=== PATIENT | female | born 1950 | race Caucasian/White ===

== ENCOUNTER → 2023-05-20 | Outpatient (CLI) | payer OTHER, SELFPAY ==
--- OUTSIDE RECORDS SUMMARY | 2023-05-20 08:21 | XMS RPT_ITS | CCD ---
Author Name Unknown Address [address] [place] [address] Organization [facility] Care Team Providers Care Credit Operations Specialist Name Role Phone Arnav Colemanan Unavailable Win, Nyan Unavailable Arnav Colemanan Unavailable Unavailable Jared Nyan Unavailable Unavailable Tommy, Bhuvaneswari Unavailable Unavaila ble Tommy, Bhuvaneswari Unavailable Unavaila ble Jared Nyan Unavailable Unavailable Jared Nyan Unavailable Unavailable Cecilia Wilde Unavailable Unavailable Cecilia Wilde Unavailable Unavailable Arnav Colemanan Primary Care Provider Arnav Colemanan Unavailable Deena Coleman Primary Care Provider [phone] Deena Coleman Unavailable Deena Coleman MD Primary Care Provider Deena Coleman MD Unavailable Deena Coleman MD Primary Care Provider [phone] Alexandra CHRISTIANSONN-CRIME LABORATORY ANALYST, Bear Davidson Unavailable Georgina Guzman RN Unavailable Unavailpat Gupta RN, Brunilda Unavailable Unavailable Kavin RNInez Unavailable Unavailable Todd Sanders MD Unavailable Deena Coleman MD Unavailable DEENA COLEMAN Admitting Unavailable CECILIA WILDE Attending Unavailab le JARED, NYAN Referring Unavailable JARED, ARNAVAN Primary Care Unavailable CECILIA WILDE Attending Unavailab le JARED, ARNAVAN Primary Care Unavailable CECILIA WILDE Admitting Unavailab le CECILIA WILDE Attending Unavailab le WIN, NYAN Primary Care Unavailable WIN, NYAN Primary Care Unavailable CECILIA WILDE Admitting Unavailab le CECILIA WILDE Attending Unavailab le WIN, NYAN Primary Care Unavailable FINN NASH Attending Unavailabl e WIN, NYAN Primary Care Unavailable WIN, NYAN Attending Unavailable WIN, NYAN Referring Unavailable WIN, NYAN Referring Unavailable WIN, NYAN Primary Care Unavailable WIN, NYAN Attending Unavailable WIN, NYAN Primary Care Unavailable WIN, NYAN Attending Unavailable WIN, NYAN Referring Unavailable Pending, Provider Primary Care Unavailable Cristobal Sawyer, Dr. Cory Rasmussen Attending Bernadette panchito Coleman MD, [facility] Primary Care Provider Alexandra GREGG-Bear SOSA Unavailable Tommy AVALOS, Todd Unavailable [phone] Thomas RN, Georgina Unavailable Unavailabl korin Gupta RN, Brunilda Unavailable Unavailable Kavin RN, Inez Unavailable Unavailable Tommy AVALOS, Todd Unavailable [phone] WIN, NYAN Primary Care Unavailable WIN, NYAN Referring Unavailable BEAR VEGAS Attending Unavailabl e WIN, NYAN Primary Care Unavailable WIN, NYAN Primary Care Unavailable WIN, RIAN Primary Care Unavailable MAMMOGRAPHY-ANNA, SELF-REQUESTED Referring Unavailable BEAR VEGAS Attending UnavailESPERANZA Reynoso Attending Unavailable SELF, SELF Referring Unavailable WIN, RIAN Primary Care Unavailable Allergies Allergy Classification Reported Allergen(s) Allergy Type Date of Onset Reaction(s) Facility PHENobarbital (8 sources) PHENobarbital Drug Allergy 6 [facility] (16 sources) PHENobarbital; Translations: [PHENOBARBITAL] Propensity to adverse reactions to drug 9 [facility] Work Phone: (20 sources) (D)-LIMONENE FLAVOR; Translations: [(D)-LIMONENE FLAVOR] Propensity to adverse reactions to drug 6 [facility] Work Phone: (1 source) Aspirin; Translations: [ASPIRIN] Drug Allergy 2 [facility] Medications Current Medications Medication Drug Class(es) Dates Sig (Normalized) Sig (Original) aspirin 81 mg chewable tablet (20 sources) Nonsteroidal Anti-inflammatory Drug aspirin 81 MG Elaine w Tab take 81 mg by mouth daily.. 0 Active Completed/Discontinued Medications Medication Drug Class(es) Dates Sig (Normalized) Sig (Original) TURMERIC ROOT EXTRACT ORAL (2 sources) End: 11-26-2018 TURMERIC ROOT EXTRACT ORAL Take by mouth. 0 11/26/2018 Discontinued (Discontinued by another clinician) Problems Active Problems Problem Classification Problem Date Documented Da te Episodic/Chronic Cancer of breast (8 sources) Malignant neoplasm of lower-outer quadrant of female breast; Translations: [Malignant neoplasm of lower-outer quadrant of unspecified female breast] Onset: 03-09-2007 Resolved: 03-17-2009 03-17-2009 Chronic Cancer of breast (1 source) History of malignant neoplasm of breast Episodic Conditions associated with dizziness or vertigo (4 sources) Meniere's disease, right ear; Translations: [Meniere's disease, right ear] Onset: 05-31-2022 Chronic Diverticulosis and diverticulitis (2 sources) Diverticulitis of both small and large intestine without perforation or abscess without bleeding; Translations: [Diverticulitis of both small and large intestine without perforation or abscess without bleeding] Onset: 06-08-2021 Chronic Nonspecific chest pain (2 sources) Chest pain, unspecified; Translations: [Chest pain, unspecified] Onset: 04-05-2022 Episodic Other aftercare (2 sources) Patient encounter status; Translations: [Encounter for follow-up examination after completed treatment for conditions other than malignant neoplasm] Episodic Other circulatory disease (1 source) Carotid bruit; Translations: [Carotid bruit, unspecified laterality] Episodic Other connective tissue disease (2 sources) Other specified enthesopathies of left lower limb, excluding foot; Translations: [Other synovitis and tenosynovitis] Episodic Other gastrointestinal disorders (1 source) Irritable bowel syndrome with diarrhea; Translations: [Irritable bowel syndrome with diarrhea] Chronic Other gastrointestinal disorders (3 sources) Alteration in bowel elimination; Translations: [Change in bowel habit] Onset: 08-13-2021 Episodic Other gastrointestinal disorders (3 sources) Diarrhea; Translations: [Diarrhea, unspecified] Onset: 08-13-2021 Episodic Other hereditary and degenerative nervous system conditions (1 source) Degenerative disease of nervous system, unspecified; Translations: [Degenerative disease of nervous system, unspecified] Onset: 05-31-2022 Chronic Other nervous system disorders (3 sources) Cranial nerve disorder, unspecified; Translations: [Cranial nerve disorder, unspecified] Onset: 05-31-2022 Episodic Spondylosis; intervertebral disc disorders; other back problems (2 sources) Radiculopathy, cervical region; Translations: [Radiculopathy, cervical region] Onset: 05-12-2022 Episodic Past or Other Problems Problem Classification Problem Date Documented Da te Episodic/Chronic Abdominal pain (2 sources) Generalized abdominal pain; Translations: [Generalized abdominal pain] Onset: 06-08-2021 Episodic Fracture of upper limb (20 sources) Closed Colles' fracture; Translations: [Open fracture radial styloid] Onset: 11-30-2015 11-30-2015 Episodic Mood disorders (3 sources) Mood disorders Onset: 11-30-2020 11-30-2020 Other connective tissue disease (16 sources) Tendinitis of left flexor hallucis longus; Translations: [Other enthesopathy of left foot and ankle] Onset: 11-06-2020 Episodic Other connective tissue disease (14 sources) Tendinitis; Translations: [Other specified enthesopathies of unspecified lower limb, excluding foot] Onset: 11-06-2020 Episodic Other gastrointestinal disorders (2 sources) Change in bowel habit; Translations: [Change in bowel habit] Onset: 08-13-2021 Episodic Other lower respiratory disease (2 sources) Pleurodynia; Translations: [Pleurodynia] Onset: 09-08-2021 Episodic Other screening for suspected conditions (not mental disorders or infectious disease) (2 sources) Encounter for screening mammogram for malignant neoplasm of breast; Translations: [Encounter for screening mammogram for malignant neoplasm of breast] Onset: 06-22-2022 Episodic Unclassified (17 sources) Pain; Translations: [Pain, unspecified] Onset: 12-28-2015 12-28-2015 Episodic Unclassified (1 source) Screening status Results Test Name Value Interpretation Reference Range Facil ity Vital Signs Date Time Vital Sign Value Performing Clinician Facility 08-13-2021 14:42-0400 Body height 167.6 cm Cecilia Wilde MD Work Phone: [facility] 08-13-2021 14:42-0400 Body mass index (BMI) [Ratio] 20.34 kg/m2 Cecilia Wilde MD Work Phone: [facility] 08-13-2021 14:42-0400 Body weight 57.15 kg Cecilia Wilde MD Work Phone: [facility] 08-13-2021 14:42-0400 Diastolic blood pressure 80 mm[Hg] Cecilia Wilde MD Work Phone: [facility] 08-13-2021 14:42-0400 Heart rate 83 /min Cecilia Wilde MD Work Phone: [facility] 08-13-2021 14:42-0400 SaO2% (BldA) [Mass fraction] 96 % Cecilia Wilde MD Work Phone: [facility] 08-13-2021 14:42-0400 Systolic blood pressure 127 mm[Hg] Cecilia Wilde MD Work Phone: [facility] 11-30-2020 09:14-0400 Body height 170.2 cm Bear Vegas STARCHER AND TENTER RANGE FEEDER-CRIME LABORATORY ANALYST Work Phone: [facility] 11-30-2020 09:14-0400 Body mass index (BMI) [Ratio] 20.63 kg/m2 Bear Vegas STARCHER [employer] RANGE FEEDER-CRIME LABORATORY ANALYST Work Phone: [facility] 11-30-2020 09:14-0400 Body temperature 98.71 [degF] Bear Vegas STARCHER AND TENTER RANGE FEEDER-CRIME LABORATORY ANALYST Work Phone: [facility] 11-30-2020 09:14-0400 Body weight 59.74 kg Bear Vegas STARCH[employer] AND T[employer] RANGE FEEDER-CRIME LABORATORY ANALYST Work Phone: [facility] 11-30-2020 09:14-0400 Diastolic blood pressure 63 mm[Hg] Bear Vegas STARCH[employer] T[employer] RANGE FEEDER-CRIME LABORATORY ANALYST Work Phone: [facility] 11-30-2020 09:14-0400 Heart rate 91 /min Bear Vegas STARCHER AND [employer] RANGE FEEDER-CRIME LABORATORY ANALYST Work Phone: [facility] 11-30-2020 09:14-0400 Respiratory rate 16 /min Bear Vegas STARCHER AND T[employer] RANGE FEEDER-CRIME LABORATORY ANALYST Work Phone: [facility] 11-30-2020 09:14-0400 SaO2% (BldA) [Mass fraction] 100 % Bear Vegas STARCHER AND TENTER RANGE FEEDER-CRIME LABORATORY ANALYST Work Phone: [facility] 11-30-2020 09:14-0400 Systolic blood pressure 151 mm[Hg] Bear Vegas STARCHER AND T[employer] RANGE FEEDER-CRIME LABORATORY ANALYST Work Phone: [facility] 11-26-2018 14:55-0400 BMI (Body Mass Index) 19.98 kg/m2 [facility] 11-26-2018 14:55-0400 Body Temperature 98.49 [degF] [facility] 11-26-2018 14:55-0400 Body weight 58.74 kg [facility] 11-26-2018 14:55-0400 BP Diastolic 67 mm[Hg] [facility] 11-26-2018 14:55-0400 BP Systolic 124 mm[Hg] [facility] 11-26-2018 14:55-0400 Height 171.5 cm [facility] 11-26-2018 14:55-0400 Pulse (Heart Rate) 90 /min [facility] 11-26-2018 14:55-0400 Pulse Oximetry 98 % [facility] 12-18-2017 08:20-0400 BMI (Body Mass Index) 20.83 kg/m2 [facility] 12-18-2017 08:20-0400 Body Temperature 97.9 [degF] [facility] 12-18-2017 08:20-0400 BP Diastolic 71 mm[Hg] [facility] 12-18-2017 08:20-0400 BP Systolic 137 mm[Hg] [facility] 12-18-2017 08:20-0400 Pulse (Heart Rate) 84 /min [facility] 12-18-2017 08:20-0400 Pulse Oximetry 100 % [facility] 12-18-2017 08:20-0400 Weight 61.24 kg [facility] Encounters Encounter Date Encounter Type Care Provider Facility Start: 11-02-2022 ambulatory ESPERANZA plummery:ANNA Start: 06-23-2022 ambulatory ARNAVSEVERIANO COLEMAN Facility:[facility] Start: 06-22-2022 ambulatory DEENA COLEMAN Facility:[facility] Start: 06-22-2022 End: 06-22-2022 Subsequent hospital visit by physician Todd Sanders MD Work Phone: [facility] Procedures Date Procedure Procedure Detail Performing Clinician Start: 06-22-2022 Screening mammograph y bi 2-view breast inc cad Self-Requested Mammography-Anna Work Phone: Start: 06-24-2021 Mammography Cecilia estrella MD Work Phone: Start: 06-24-2021 Mammography Leonel Sanders MD Work Phone: Start: 06-11-2021 MG Breast - bilatera l Screening Todd Sanders MD Work Phone: Start: 01-07-2020 Carotid artery doppl er assessment Deena Coleman Work Phone: Start: 01-03-2018 Colonoscopy Deena Coleman Plan of Treatment Date Care Activity Detail Author Start: 10-16-2023 Tetanus vaccination [facility] Start: 06-22-2023 Screening for malignant neoplasm of breast MAMMOGRAM SCREENING DISCUSSION [facility] Start: 01-03-2023 Screening for malignant neoplasm of colon [facility] Start: 10-06-2022 End: 10-06-2022 Patient encounter procedure 10/06/2022 Office Visit Y[facility]ER Esperanza Goins, STARCHER AND TENTER RANGE FEEDER-CRIME LABORATORY ANALYST [address] [place] [address] [facility] Start: 08-01-2022 End: 08-01-2022 Patient encounter procedure 08/01/2022 Office Visit Oncology Bear Vegas, STARCHER AND TENTER RANGE FEEDER-CRIME LABORATORY ANALYST [address], [address] [place] [address] Medical Oncology at [facility] [place] Start: 06-24-2022 Screening for malignant neoplasm of breast Mammogram [facility] Start: 11-29-2021 End: 11-29-2021 Patient encounter procedure 11/29/2021 Office Visit Oncology Bear Vegas STARCH[employer] AND T[employer] RANGE FEEDER-CRIME LABORATORY ANALYST [address] [place] [id number] Medical Oncology at [facility] Start: 09-08-2021 End: 09-08-2021 Admission to same day surgery center 09/08/2021 Surgery Cecilia Wilde MD [facility] [place] [address] [address] [facility] Immunizations Immunization Date Immunization Notes Care Provider Fa cili 02-09-2016 influenza, high dose seasonal, preservative-free Bear Vegas STARCHER AND T[employer] RANGE FEEDER-CRIME LABORATORY ANALYST Work Phone: [facility] 02-09-2016 influenza virus vaccine, unspecified formulation Bear Vegas STARCHER AND TENTER RANGE FEEDER-CRIME LABORATORY ANALYST Work Phone: [facility] 02-02-2015 influenza, seasonal, injectable Bearher Vegas STARCHER AND TENTER RANGE FEEDER-CRIME LABORATORY ANALYST Work Phone: [facility] Payers Date Payer Category Payer Medicare [id number] 2015 Medicare AETNA MANAGED [place] DICARE AETNA MEDICARE PLAN (PPO) xxxxxxxx 2015-Present [id number] 2015 Medicare [id number] 2015 Medicare [id number] 2015 Medicare [id number] 1950 Unknown [id number] 1950 Unknown [id number] [id number] 1950 Unknown [id number] [id number] 1950 Unknown [id number] [id number] 1950 Unknown [id number] [id number] 1950 Unknown [id number] [id number] 1950 Unknown [id number] [id number] 1950 Unknown [id number] [id number] 1950 Unknown [id number] [id number] 1950 Unknown [id number] [id number] 1950 Unknown [id number] [id number] 1950 Unknown [id number] [id number] 1950 Unknown [id number] [id number] 1950 Unknown [id number] [id number] 1950 Unknown [id number] Social History Date Type Detail Facility Start: 11-30-2016 End: 03-30-2020 Tobacco smoking status NHIS Never smoker [facility] Start: 1950 Sex Assigned At Not on file [facility] Work Phone: Start: 08-01-2016 Alcohol Comment occasionally 2 per m onth [facility] Start: 11-26-2018 End: 03-30-2020 Tobacco use and exposure Never used [facility] Start: 11-26-2018 End: 11-30-2020 Alcohol intake Current drinker of alcohol (finding) [facility] Start: 08-03-2021 End: 06-22-2022 Exposure to SARS-CoV-2 (event) Not sure [facility] Start: 11-30-2020 End: 06-22-2022 Alcohol intake [facility] Clinical Notes 11-03-2020 to 06-22-2022 Roxy Armenta - 06/22/2022 1:40 PM Rajan Wilde MD - 08/13/2021 3:00 PM Amara Vegas APRN-CRIME LABORATORY ANALYST - 11/30/2020 9:15 AM EDTPatient Instructions Note Date & Type Note Facility 06-22-2022 History of Present illness Narrative Patient offered a medical equine science instructor for sensitive exam. Pt declined documented in this encounter [facility] 08-13-2021 History of Present illness Narrative [facility] [address] [facility] [address] [facility] [phone] Patient: Shree Orellana Age: 70 y.o. Race: [1] Chief Complaint: Chief Complaint Patient presents with Consult Diarrhea,IBS 1. Change in bowel habits 2. Diarrhea, unspecified type Date: 08/13/21 Physicians: Deena Coleman MD (Family); Deena Coleman MD (Referring) HPI: Over the past few months, this 70-year-old female was noted a change in bowel habits with increasing problems with diarrhea. It is intermittent. She occasionally has bloating discomfort. There is family history of both ulcerative colitis and Crohn's disease. She personally had a last colonoscopy about 3-1/2 years ago and a single adenoma was removed. She is anxious to proceed with repeat colonoscopy given the changes. YES NO [x] [] Change in bowel habits? [] [x] Constipation [x] [] Diarrhea? [] [x] Blood in stool? [] [x] Mucus in your stool? [] [x] Decrease in caliber of your stool? [] [x] Heme positive stool [] [x] Have you recently been diagnosed with anemia by your family doctor? [] [x] Do you have any family members with a history of Colon Cancer? Past Histories: Allergies: (d)-limonene flavor and Phenobarbital Patient's Medications New Prescriptions No medications on file Previous Medications ASPIRIN 81 MG EC TABLET Take 81 mg by mouth daily. CALCIUM CARBONATE-VITAMIN D3 600 MG(1,500MG) -200 UNIT PER TABLET Take by mouth. CALCIUM-MAGNESIUM 300-300 MG TAB Take by mouth . CETIRIZINE-PSEUDOEPHEDRINE (ZYRTEC-D) 5-120 MG PER TABLET Take by mouth. DULOXETINE (CYMBALTA) 30 MG CAPSULE Take by mouth . HYOSCYAMINE (LEVBID) 0.375 MG 12 HR TABLET Take 0.375 mg by mouth every 12 (twelve) hours as needed for cramping . RED YEAST RICE ORAL Take by mouth . Modified Medications No medications on file Discontinued Medications No medications on file Patient Active Problem List Diagnosis Closed Colles' fracture of left radius Nondisplaced fracture of left radial styloid process, subsequent encounter for open fracture type I or II with routine healing Pain Quadriceps tendinitis Tendinitis of left flexor hallucis longus Past Medical History: Diagnosis Date Anxiety Breast cancer (HCC) 03/2007 Left... T1C N0 M0 Stage 1, ER+ WA+ Her2 negative 1.3 cm invasive lobular...XRTONC: Dr. Kelley, ONC: Abe Dowling...Currently sees [facility] Hyperlipidemia IBS (irritable bowel syndrome) Multiple allergies Osteoporosis Past Surgical History: Procedure Laterality Date BUNIONECTOMY COLONOSCOPY 2007 hyperplastic...Jose COLONOSCOPY W/ POLYPECTOMY 01/03/2018 Tubular adenoma,scattered diverticula in sigmoid,colonic mucosa negative for dysplasia...Dr. Wilde D&C (DIL & CURETTAGE, SHARP W/ SUCTION) EAR PIERCINGS EXCISION Left 03/09/2007 Excisional bx of breast nodule-Moderately differentiated infiltrating carcinoma, lobular type, Grade II ([place] score 3+2+1=6...Dr. Shukla EXCISION Skin lesions-pre cancer, LUMPECTOMY Left 03/20/2007 Re-excision with axillary sentinel LN bx...Dr. Shukla SIGMOIDOSCOPY FLEXIBLE 02/12/2010 with biopsies, benign TONSILLECTOMY Social History Socioeconomic History Marital status: Occupational History Occupation: Teacher Tobacco Use Smoking status: Never Smoker Smokeless tobacco: Never Used Vaping Use Vaping Use: Never used Substance and Sexual Activity Alcohol use: Yes Comment: occasionally 2 per month Drug use: No Data Unavailable Social History Tobacco Use Smoking Status Never Smoker Smokeless Tobacco Never Used Social History Substance and Sexual Activity Alcohol Use Yes Comment: occasionally 2 per month Social History Substance and Sexual Activity Drug Use No Family History Problem Relation Age of Onset Hypertension Mother Stroke Mother Ulcerative colitis Mother Hyperlipidemia Father Cancer Sister Cancer Son Hypertension Maternal Grandmother REVIEW OF SYSTEMS Pertinent positives and negatives are listed in HPI, PMSH, SH, ALL above and in Details below. The following systems were reviewed: [x] Const (fevers, chills, wt. loss, fatigue) [x] CV (HTN, CP, LIEBERMAN, edema, DVT) [x] Resp (SOB, pleurisy, asthma, apnea) [x] GI (N, V, D, C, M, abd pain, appetite) [x] Musc (back pain, joint stiffness, gout) [x] Neuro (seizures, syncope, paralysis) [x] Psych (depression, anxiety) [x] Endo (hot/cold intol, polyuria[DM]) [x] Hem/Lymph (Anemia, LA, bleeding) [x] Allerg/Immun (seasonal, immuniz) [x] Eyes (diplopia, cataracts) [x] ENT/mouth (dysphagia, epistaxis) [x] (dysuria, hematuria) [x] Skin/Breast (moles, rash, lumps, nipple changes) Details: See scanned ROS Physical Exam: BP 127/80 Pulse 83 Ht 5' 6 Wt 57.2 kg (126 lb) SpO2 96% BMI 20.34 kg/m Body mass index is 20.34 kg/m . HEENT: PERRLA EOMI MMM anicteric Neck: supple without thyromegaly or masses Cardiac: regular rate and rhythm without murmur Lungs: clear to auscultation Back: negative CVA tenderness Abdomen: normoactive bowel sounds, soft, nondistended, nontender, no masses, organomegaly, rebound, or guarding Extremities: no cyanosis, clubbing, or edema Neuro: awake, alert, oriented 3, normal affect, no focal deficits Assessment: Change in bowel habits Diarrhea Plan: Colonoscopy The procedure, risks, and benefits were discussed with the patient in detail. The patient seemed to understand everything that we discussed, and agreed to proceed. 1. Change in bowel habits 2. Diarrhea, unspecified type No orders of the defined types were placed in this encounter. Cecilia Wilde MD documented in this encounter [facility] 11-30-2020 History of Present illness Narrative Shree Orellana is a 65 y.o. White postmenopausal female who presents today for a 12 month follow-up visit. History of Present Illness: ONCOLOGIC HISTORY 2007: LEFT breast cancer- 1cm, grade 2, invasive lobular cancer, ER/WA+ and Her2 -, N1i (0/3 LN positive, 1 LN had isolated tumor cells) 2007: LEFT lumpectomy and adjuvant RT 2007: Oncotype 14 2007: Arimidex started 2012: Arimidex discontinued after 5 years of therapy 02/09/2016: Observation, pt overall doing well; discussed AI therapy guidelines and Arimidex was restarted with plan for 5 more years 2020. 01/30/17: Follow up. She could not tolerate anastrazole and quit last year right after she started NOT on any therapy. 03/07/18: Follow up; currently on observation alone. 03/15/19: Follow up; currently on observation alone. MMG performed JAN 2019 - requested results. 03/30/20: Follow up on observation alone. MMG performed FEB 28, 2020 at OSH and this has been reviewed and is benign. 11/30/20: Follow up on observation alone. MMG performed. [place] History Reena Orellana presents for follow up today and management of her breast disease. -Continues on observation alone. -MMG performed JAN 2020. Next scheduled for JAN 2021. -Currently denies any pain or discomfort. -Reports a previous ache in left UE. PCP states he felt there was some adenopathy in the arm (not in the axilla). -Patient is unable to palpate LN in arm or in axilla. No current ache or pain. -Denies any pain currently. No progressive or persistent pain. Occasional aches and pains with activity that resolve with rest. Mild and tolerable. -Reports eating and sleeping at baseline. -Reports baseline bowel/bladder function. -Denies headaches or dizziness. -Energy and mood are good. Stays very active. Medical/Surgical History: Past Medical History: Diagnosis Date Anemia 1968 IBS (irritable bowel syndrome) Malignant neoplasm of lower-outer quadrant of female breast 03/09/2007 left, ER/WA +, [id number] -; oncotype score 14 treated with ARIMIDEX Post-menopausal age 55 Radiation therapy 05/2007 left breast Rheumatic fever 1955 Past Surgical History: Procedure Laterality Date BREAST LUMPECTOMY 03/20/2007 left, node bx, 1.3cm, ILC, Grade 2/3, node - 0/3 BUNIONECTOMY x 2 TONSILLECTOMY ADENOIDECTOMY Family/Social History: Her family history includes testicular cancer in one son, and lymphoma in another son. Sister had nasopharyngeal cancer. Another sister had oat cell lung cancer. There is no history of Breast Cancer or Ovarian Cancer. She reports that she has never smoked. She does not have any smokeless tobacco history on file. She reports that she drinks about 2 servings alcohol per month. She reports that she does not use illicit drugs. Medications/Allergies/Immunizati ons: Her current medication(s) include has a current medication list which includes the following prescription(s): aspirin 81 MG Chew Tab, cetirizine-psuedoephedrine 5-120 MG PO tab SR, duloxetine (CYMBALTA) 30 MG PO CPEP. Allergies: Phenobarbital Immunizations: Immunization History Administered Date(s) Administered Influenza Vaccine, High-dose 02/09/2016 Influenza Vaccine, Trivalent 02/02/2015 Review of Systems: As noted in interval history. Physical Exam: Vitals: Blood pressure 135/72, pulse 89, temperature 99 F (37.2 C), temperature source Oral, resp. rate 16, height 1.715 m (5' 7.52 ), weight 63.5 kg (140 lb), SpO2 98 %. Patient's Current Performance Status 0 General/Constitutional: Well developed, well nourished female, who looks their stated age of 65 y.o.. No acute distress. HEENT: Head: Normocephalic and atraumatic. Eyes: Pupils are equal, round, and reactive to light and accomodation. Extraocular movements are intact. Sclerae are anicteric. Neck: Supple, non-tender, with no lymphadenopathy. Cardiac: Regular rate and rhythm. Normal S1, S2. No murmurs, rubs or gallops. Pulmonary/Chest: Lungs are clear to auscultation bilaterally. No wheezes, rhonchi or rales noted. Abdominal: Abdomen with normoactive bowel sounds in all four quadrants. Soft, non-tender, non-distended. No organomegaly. Extremities: Normal range of motion in all four extremities, with normal strength equally and symmetrically. No cyanosis or clubbing or peripheral edema. Neurological: Conscious, alert and oriented. Cranial nerves II through XII are intact grossly and symmetrically. No focal neurologic deficit. Skin: Skin is warm and dry. She is not diaphoretic. Psychiatric: Appropriate mood and affect. Back: No CVA or point vertebral tenderness. Lymph: No supraclavicular or axillary adenopathy. Right Breast: normal without suspicious masses, skin or nipple changes or axillary nodes, examined in upright and supine position, nipples normal without inversion, lesions or discharge, no skin dimpling or peau d'orange, self-exam is taught and encouraged, unchanged from previous exams, mammogram is up to date Left Breast: normal without suspicious masses, skin or nipple changes or axillary nodes, examined in upright and supine position, nipples normal without inversion, lesions or discharge, no skin dimpling or peau d'orange, self-exam is taught and encouraged, lumpectomysite well healed without palpable abnormalities, unchanged from previous exams Chest Wall: No abnormalities noted. 11/30/2020 LEFT arm (non-dominant) is 16 mm in circumference around mid-bicep. RIGHT arm (dominant) is 15.5 cm in circumference around mid-bicep. No adenopathy in LEFT arm or axilla. No adenopathy in RIGHT axilla. Imaging Data: [facility] performed [facility] JAN 2020 is benign. DEXA 2018 - early osteoporosis. Repeat due 2020. This is being managed by PCP. Impression and Recommendations: Shree is a 70 y.o. who has a history of LEFT breast cancer, ILC, ER/WA+ and Her2- dx in 2006. S/p LEFT lumpectomy, adjuvant RT and AI therapy from [id number]. Current Treatment: Observation alone. Completed AI therapy. 11/30/2020 Breast Cancer: -Pt is s/p lumpectomy, adjuvant RT and 5 years for AI therapy with Arimidex. -Attempted to extend therapy to 10 years total ([id number]), however, patient was unable to tolerate more than a few days due to leg cramping. -She is now on observation alone. -There is no evidence of recurrent disease on today's exam. -Mammogram done in [place] JAN 2020 - radiology report received and reviewed. -Confirmed that next [facility] is scheduled for JAN 2021. Lymphedema (LEFT): -Mild, 0.5 cm difference in LEFT, affected side than RIGHT. -Discussed PT with compression sleeve fitting. -Patient declined offer for PT and/or compression garment. -Will call if this worsens or if pain returns. Osteoporosis: -T score 2.55 in L4 vertebra. -She is trying weight bearing exercise to increase bone density. -She had DEXA (2018) and is on calcium and vitamin D. This is managed by her pcp. -Next DEXA due 2020. Health Maintenance: -We encourage all patients to engage in dedicated and routine exercise. Evidence supports that exercising for 150 minutes per week can decrease the risk of recurrent breast disease and reduce the risk of dying prematurely from other diseases. -We encourage all patients to engage in healthy eating habits that include a diet rich in plant based foods and low in animal fat. RTC in 1 year for follow-up. JUDAH Hicks documented in this encounter [facility] 11-30-2020 Instructions Georgina Guzman RN - 11/30/2020 9:15 AM EDT Images from the original note were not included. Store your prescribed pain medication in a locked cabinet or in an area only accessible to you. When you no longer need your prescribed pain medication, dispose of it immediately by one of the safe methods listed below: TAKE BACK PROGRAM: A drug take-back program is the best method to dispose of un-needed opioids safely. You can locate the take-back program closest to you @ https://takebackday.mal[place].gov under the [employer] tab. Never dispose of un-needed medications down the sink or toilet. Instead, crush the medication and mix with damp coffee grounds or cat litter, place in a sealed plastic freezer bag, and dispose of in your regular trash. Your Medical/Oncology Team Doctor: Todd Sanders MD Nurse Practitioner: Bear Vegas, [employer] ANALYST Primary Nurses: Georgina CHANDLERN, RN, ALYSSA De La O RN, BSN We are available to take calls Monday-Monday 8:00am-4:30pm. During non-business hours and holidays phone calls will be managed by after-hours MILENAU/Anna RN's. Please allow at least 10 business days for your team to complete any paperwork. When requesting medication refills, please try to provide as much notice as possible (5 days) in order to ensure that you do not run out of medication. documented in this encounter [facility] 11-25-2020 History of Present illness Narrative [facility] OUTPATIENT REHABILITATION DAILY TREATMENT NOTE Today's Date 11/25/2020 Patient Name: Shree Orellana Date of : 1950 Current Visit #: 8 Authorized Visits: 197 Case Name: great toe flexor tendon, quadraceps tendonitis History: Pre-Treatment Pain Scale: 6 Symptoms: L sided LBP Functional Diagnosis: 1. Quadriceps tendinitis 2. Tendinitis of left flexor hallucis longus Clinical Information: Subjective: Pt states foot and ankle are feeling much better. Pt states still has plantar fascia pain on L foot. Pt states still continues to have L sided LBP rating a 6/10 today. Pt brought in plantar fascia sleeping brace for education on how to put it on. Objective: Started and introduced nustep for improvement with ankle and LE strength. Pt cont with stretching to decrease tightness. Pt cont with foot intrinsic strengthening. Cont with quad and hip strengthening for stabilization. Added self rolling to plantar region to decrease pain and tightness. Treatments: Physical Therapy Exercise Log - 11/25/20 1516 OTHER Precautions/Contraindications [facility] Vitals 3:15-4:00 Therapeutic Exercise (26774) Intervention Great toe stretch: towel under heel and pull ends, 20 x 5 Parameters Gastroc stretch: 20 x 5 Standing with wedge today Intervention supine SLR flexion and sidelying hip abduction 2 x 10 Parameters Supine and SL Clamshell: GTB 3 2 x 10 Intervention LAQ: 2 x 10, 3 hold Parameters Toe Scrunches: 2' Intervention Toe yoga: x 20 each Parameters Domin' Intervention Nustep L2 5' with UE use Parameters self ball roll to planter fascia region 2' Additional Exercises Add more exercises? Yes PT Treatment Times Therex Total Time 45 Direct Treatment Time 45 Total Treatment Time 45 Goals: Physical Therapy Ortho Goals: 1. The patient will safely, correctly and independently demonstrate the ability to perform a progressive HEP to achieve maximal rehabilitation potential and prevent this condition from recurring. 2. Able to tolerate standing/walking 30+ min continuously; able to manipulate/move up to 20# occasionally in knee to waist range. 3. Demonstrates 4/5 knee strength 125deg of AROM. 4. Resumption of full PLOF ADL at home and in recreational activities. 5 Decrease pain from 6/10 with activity to 3/10 or less with full duty activity at home and recreation. 6. Patient to be independent with pain management methods including specific localized self application of thermal and/or cryo agents, stretching/self-mobilization, self-taping/supportive devices, localized tissue manipulation/pressure, self massage, and OTC topical analgesics; and awareness of products which may be available to assist in these strategies. 7. Patient to effectively apply relevant principles of regional body biomechanics and task related ergonomics. 8. Patient to verbalize adequate understanding of rehabilitation process; also ability to recognize signs and sx of too much or dysfunctional exercise, activity, or posture. 9. Patient will increase FOTO score from 48 to at least 65 to show MDC/MCII and expected functional outcome in 6 weeks Patient Education: Quality of movement with patient demonstrated understanding. Post-Treatment Pain Scale: improvement Assessment: Patient had an expected response to treatment. Pt had good tolerance to all exercises. Relief with self baseball rolling. Slight decrease in hip pain post exercises. Skilled Intervention demonstrated by modifications of treatment per exercise log including increased load and safety interventions per exercise log. Progress towards goals as expected. Plan for Next Visit: Treatment Visit with focus on Cont POC x2 more session Darío Cole PTA STATE LICENSE, [id number] documented in this encounter [facility] 11-23-2020 History of Present illness Narrative [facility] OUTPATIENT REHABIL[facility]ATION DAILY TREATMENT NOTE Today's Date 11/23/2020 Patient Name: Shree Orellana Date of : 1950 Current Visit #: 7 Authorized Visits: 197 Case Name: great toe flexor tendon, quadraceps tendonitis History: Pre-Treatment Pain Scale: 4 Symptoms: stabilized Functional Diagnosis: 1. Quadriceps tendinitis 2. Tendinitis of left flexor hallucis longus Clinical Information: Subjective: Pt reports she was compliant with HEP over the weekend and noticed sx relief Pt notes some increased LBP with SLR at home Objective We discussed bringing in a sleeping brace for DF NV, reviewed HEP Used t band to assist SLR, decrease in LBP noted Treatments: Physical Therapy Exercise Log - 11/23/20 1001 OTHER Precautions/Contraindications [facility] Vitals [id number] Therapeutic Exercise (16054) Intervention Great toe stretch: towel under heel and pull ends, 20 x 5 Parameters Gastroc stretch: 20 x 5 Standing with wedge today Intervention supine SLR flexion and sidelying hip abduction: 2 x 10 Parameters Supine Clamshell: GTB 3 2 x 10 Intervention LAQ: 2 x 10, 3 hold Parameters Toe Scrunches: pilowcase on floor, x20 Intervention Toe yoga: x 20 each Parameters Domin' Additional Exercises Add more exercises? Yes PT Treatment Times Therex Total Time 40 Direct Treatment Time 40 Total Treatment Time 43 Goals: Physical Therapy Ortho Goals: 1. The patient will safely, correctly and independently demonstrate the ability to perform a progressive HEP to achieve maximal rehabilitation potential and prevent this condition from recurring. 2. Able to tolerate standing/walking 30+ min continuously; able to manipulate/move up to 20# occasionally in knee to waist range. 3. Demonstrates 4/5 knee strength 125deg of AROM. 4. Resumption of full PLOF ADL at home and in recreational activities. 5 Decrease pain from 6/10 with activity to 3/10 or less with full duty activity at home and recreation. 6. Patient to be independent with pain management methods including specific localized self application of thermal and/or cryo agents, stretching/self-mobilization, self-taping/supportive devices, localized tissue manipulation/pressure, self massage, and OTC topical analgesics; and awareness of products which may be available to assist in these strategies. 7. Patient to effectively apply relevant principles of regional body biomechanics and task related ergonomics. 8. Patient to verbalize adequate understanding of rehabilitation process; also ability to recognize signs and sx of too much or dysfunctional exercise, activity, or posture. 9. Patient will increase FOTO score from 48 to at least 65 to show MDC/MCII and expected functional outcome in 6 weeks Patient Education: Verbal HEP with patient verbalized understanding. Post-Treatment Pain Scale: 3 Assessment: Patient had an expected response to treatment. Pt will progress with strength and sx relief with increased HEP compliance, slight improvement noted with HEP this weekend Skilled Intervention demonstrated by modifications of treatment per exercise log including assessment of patient's response and safety interventions per exercise log. Progress towards goals as expected. Plan for Next Visit: Treatment Visit with focus on progressing as tolerated Daniele Kohli PTA STATE LICENSE, [id number] documented in this encounter [facility] 11-18-2020 History of Present illness Narrative [facility] OUTPATIENT REHABIL[facility] DAILY TREATMENT NOTE Today's Date 11/18/2020 Patient Name: Shree Orellana Date of : 1950 Current Visit #: 6 Authorized Visits: 197 Case Name: great toe flexor tendon, quadraceps tendonitis History: Pre-Treatment Pain Scale: 4 Symptoms: stabilized Functional Diagnosis: 1. Quadriceps tendinitis 2. Tendinitis of left flexor hallucis longus Clinical Information: Subjective: Pt states L piriformis region pain is 4/10 today. Pt denies any ankle/foot pain today. Pt notes had relief with exercises and manual therapy techniques after last session. Pt states is not compliant with HEP and knows she needs to get in a routine. Pt educated on importance HEP and benefits of exercises. Objective: Started with stretching to decrease tightness and improvement of ankle ROM. Pt cont with ankle and foot intrinsic strengthening. Cont with hip/ knee strengthening for ankle stabilization. Treatments: Physical Therapy Exercise Log - 11/18/20 1006 OTHER Precautions/Contraindications [facility] Vitals 10:07-10:48 Therapeutic Exercise (64390) Intervention Great toe stretch: towel under heel and pull ends, 20 x 5 Parameters Gastroc stretch: 20 x 5 Standing with wedge today Intervention supine SLR flexion and sidelying hip abduction: 2 x 10 Parameters Supine Clamshell: RTB 2 x 10 Intervention LAQ: 2 x 10, 3 hold Parameters Toe Scrunches: pilowcase on floor, x20 Intervention Toe yoga: x 20 each Parameters Domin' Manual Therapy (95155) Intervention -- Parameters -- Additional Exercises Add more exercises? Yes Self Care (86347) Intervention -- Parameters -- PT Treatment Times Therex Total Time 41 Direct Treatment Time 41 Total Treatment Time 41 Goals: Physical Therapy Ortho Goals: 1. The patient will safely, correctly and independently demonstrate the ability to perform a progressive HEP to achieve maximal rehabilitation potential and prevent this condition from recurring. 2. Able to tolerate standing/walking 30+ min continuously; able to manipulate/move up to 20# occasionally in knee to waist range. 3. Demonstrates 4/5 knee strength 125deg of AROM. 4. Resumption of full PLOF ADL at home and in recreational activities. 5 Decrease pain from 6/10 with activity to 3/10 or less with full duty activity at home and recreation. 6. Patient to be independent with pain management methods including specific localized self application of thermal and/or cryo agents, stretching/self-mobilization, self-taping/supportive devices, localized tissue manipulation/pressure, self massage, and OTC topical analgesics; and awareness of products which may be available to assist in these strategies. 7. Patient to effectively apply relevant principles of regional body biomechanics and task related ergonomics. 8. Patient to verbalize adequate understanding of rehabilitation process; also ability to recognize signs and sx of too much or dysfunctional exercise, activity, or posture. 9. Patient will increase FOTO score from 48 to at least 65 to show MDC/MCII and expected functional outcome in 6 weeks Patient Education: Quality of movement with patient demonstrated understanding. Post-Treatment Pain Scale: 0 Assessment: Patient had an expected response to treatment. HEP given with educated on proper performance of exercises. Education on self Piriformis release with ball on wall at home. Muscle fatigue with hip strengthening exercises. Difficulty with toe yoga requiring assistance from other foot. Pt has relief with pain post session. Skilled Intervention demonstrated by modifications of treatment per exercise log including increased load and safety interventions per exercise log. Progress towards goals as expected. Plan for Next Visit: Treatment Visit with focus on Cont POC Added progressed ankle strengthening (heel raises, SLS, shuttle squats NV) Darío Cole PTA STATE LICENSE, [id number] documented in this encounter [facility] 11-16-2020 History of Present illness Narrative [facility] OUTPATIENT REHABIL[facility]ATION DAILY TREATMENT NOTE Today's Date 11/16/2020 Patient Name: Shree Orellana Date of : 1950 Current Visit #: 5 Authorized Visits: 197 Case Name: great toe flexor tendon, quadraceps tendonitis History: Pre-Treatment Pain Scale: 2 Symptoms: gradually improved Functional Diagnosis: 1. Quadriceps tendinitis 2. Tendinitis of left flexor hallucis longus Clinical Information: Subjective: Client notes improve,ment overall, but still having increased discomfort in hip since previous PT session. Objective Treatments: Physical Therapy Exercise Log - 11/16/20 1051 OTHER Precautions/Contraindications [facility] Vitals 10:50-11:30 Therapeutic Exercise (74504) Intervention Great toe stretch: towel under heel and pull ends, 20 x 5 Parameters Gastroc stretch: 20 x 5 Standing with wedge today Intervention supine SLR flexion and sidelying hip abduction: 2 x 10 Parameters Supine Clamshell: RTB 2 x 10 Intervention LAQ: 2 x 10, 3 hold NV Parameters Toe Scrunches: pilowcase on floor, x 5 NV Intervention Toe yoga: x 20 each NV Parameters Dominx1min NV Manual Therapy (90864) Intervention DTM with active release technique to L glute min and L vastus lateralis Parameters 20min Additional Exercises Add more exercises? Yes Self Care (24743) Intervention INstructed to ice her greater trochanter with ice pack. Instructed patient in safe use of cold packs, ice massage and cyro agents with techniques to optimize treatment effects at home. Also in anti-inflammatory benefits of cryo therapy, and physics of energy transfer to support effective application technique. Parameters 10min PT Treatment Times Therex Total Time 15 Manual Therapy Total Time 15 Self Care Total Time 10 Direct Treatment Time 40 Total Treatment Time 40 Goals: Physical Therapy Ortho Goals: 1. The patient will safely, correctly and independently demonstrate the ability to perform a progressive HEP to achieve maximal rehabilitation potential and prevent this condition from recurring. 2. Able to tolerate standing/walking 30+ min continuously; able to manipulate/move up to 20# occasionally in knee to waist range. 3. Demonstrates 4/5 knee strength 125deg of AROM. 4. Resumption of full PLOF ADL at home and in recreational activities. 5 Decrease pain from 6/10 with activity to 3/10 or less with full duty activity at home and recreation. 6. Patient to be independent with pain management methods including specific localized self application of thermal and/or cryo agents, stretching/self-mobilization, self-taping/supportive devices, localized tissue manipulation/pressure, self massage, and OTC topical analgesics; and awareness of products which may be available to assist in these strategies. 7. Patient to effectively apply relevant principles of regional body biomechanics and task related ergonomics. 8. Patient to verbalize adequate understanding of rehabilitation process; also ability to recognize signs and sx of too much or dysfunctional exercise, activity, or posture. 9. Patient will increase FOTO score from 48 to at least 65 to show MDC/MCII and expected functional outcome in 6 weeks Patient Education: Verbal HEP and Diagnosis and recovery specific education with patient demonstrated understanding and verbalized understanding. Post-Treatment Pain Scale: 0 Assessment: Patient had an expected response to treatment. Continues to have hip pain, though today's treatment significantly alleviated it. Skilled Intervention demonstrated by modifications of treatment per exercise log including assessment of patient's response and safety interventions per exercise log. Progress towards goals as expected. Plan for Next Visit: Treatment Visit with focus on increasing functional activity tolerance. Focus on lower leg pain next session. Bharath Allen PT State License, [id number] documented in this encounter [facility] 11-11-2020 History of Present illness Narrative [facility] REH[facility]IL[facility]ATION DAILY TREATMENT NOTE Today's Date 11/11/2020 Patient Name: Shree Orellana Date of : 1950 Current Visit #: 4 Authorized Visits: 197 Case Name: great toe flexor tendon, quadraceps tendonitis History: Pre-Treatment Pain Scale: 1 Symptoms: stabilized Functional Diagnosis: 1. Quadriceps tendinitis 2. Tendinitis of left flexor hallucis longus Clinical Information: Subjective: Pt reports low pain level coming in today, she is still not compliant with HEP but verbalizes reduced sx's with therapy Objective Reviewed using towel to increase effectiveness of standing calf stretch at home Treatments: Physical Therapy Exercise Log - 11/11/20 1306 OTHER Precautions/Contraindications [facility] Vitals [id number] Therapeutic Exercise ([id number]) Intervention Great toe stretch: towel under heel and pull ends, 20 x 5 Parameters Gastroc stretch: 20 x 5 Standing with wedge today Intervention supine SLR flexion and sidelying hip abduction: 2 x 10 Parameters Supine Clamshell: RTB 2 x 10 Intervention LAQ: 2 x 10, 3 hold Parameters Toe Scrunches: pilowcase on floor, x 5 Intervention Toe yoga: x 20 each Parameters Dominx1min Additional Exercises Add more exercises? Yes PT Treatment Times Therex Total Time 40 Direct Treatment Time 40 Total Treatment Time 40 Goals: Physical Therapy Ortho Goals: 1. The patient will safely, correctly and independently demonstrate the ability to perform a progressive HEP to achieve maximal rehabilitation potential and prevent this condition from recurring. 2. Able to tolerate standing/walking 30+ min continuously; able to manipulate/move up to 20# occasionally in knee to waist range. 3. Demonstrates 4/5 knee strength 125deg of AROM. 4. Resumption of full PLOF ADL at home and in recreational activities. 5 Decrease pain from 6/10 with activity to 3/10 or less with full duty activity at home and recreation. 6. Patient to be independent with pain management methods including specific localized self application of thermal and/or cryo agents, stretching/self-mobilization, self-taping/supportive devices, localized tissue manipulation/pressure, self massage, and OTC topical analgesics; and awareness of products which may be available to assist in these strategies. 7. Patient to effectively apply relevant principles of regional body biomechanics and task related ergonomics. 8. Patient to verbalize adequate understanding of rehabilitation process; also ability to recognize signs and sx of too much or dysfunctional exercise, activity, or posture. 9. Patient will increase FOTO score from 48 to at least 65 to show MDC/MCII and expected functional outcome in 6 weeks Patient Education: Verbal HEP with patient verbalized understanding. Post-Treatment Pain Scale: 1 Assessment: Patient had an expected response to treatment. Pt continues to have low compliance with HEP, though she verbalizes the effectiveness of treatments and the reduction of sx's, she seems to understand the importance of compliance but states she is to busy currently Skilled Intervention demonstrated by modifications of treatment per exercise log including assessment of patient's response and safety interventions per exercise log. Progress towards goals as expected. Plan for Next Visit: Treatment Visit with focus on progressing as tolerated Daniele Kohli PTA STATE LICENSE, [id number] documented in this encounter [facility] 11-09-2020 History of Present illness Narrative [facility] OUTPATIENT REHABILITATION DAILY TREATMENT NOTE Today's Date 11/09/2020 Patient Name: Shree Orellana Date of : 1950 Current Visit #: 3 Authorized Visits: [id number] Case Name: great toe flexor tendon, quadraceps tendonitis History: Pre-Treatment Pain Scale: 2 Symptoms: gradually improved Functional Diagnosis: 1. Quadriceps tendinitis 2. 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 Parsons really good after previous session. Noticeable improvement since starting PT. Objective Treatments: Physical Therapy Exercise Log - 11/09/20 1367 OTHER Precautions/Contraindications [facility] Vitals [id number] Therapeutic Exercise (85291) Intervention Great toe stretch: towel under heel and pull ends, 20 x 5 Parameters Gastroc stretch: 20 x 5 longsitting with towel Intervention SLR flex and abduction: 2 x 10 Parameters Supine Clamshell: RTB 2 x 10 Intervention LAQ: 2 x 10, 3 hold Parameters Toe Scrunches: pilowcase on floor, x 5 Intervention Toe yoga: x 20 each Parameters Doming: NV Additional Exercises Add more exercises? Yes Goals: Physical Therapy Ortho Goals: 1. The patient will safely, correctly and independently demonstrate the ability to perform a progressive HEP to achieve maximal rehabilitation potential and prevent this condition from recurring. 2. Able to tolerate standing/walking 30+ min continuously; able to manipulate/move up to 20# occasionally in knee to waist range. 3. Demonstrates 4/5 knee strength 125deg of AROM. 4. Resumption of full PLOF ADL at home and in recreational activities. 5 Decrease pain from 6/10 with activity to 3/10 or less with full duty activity at home and recreation. 6. Patient to be independent with pain management methods including specific localized self application of thermal and/or cryo agents, stretching/self-mobilization, self-taping/supportive devices, localized tissue manipulation/pressure, self massage, and OTC topical analgesics; and awareness of products which may be available to assist in these strategies. 7. Patient to effectively apply relevant principles of regional body biomechanics and task related ergonomics. 8. Patient to verbalize adequate understanding of rehabilitation process; also ability to recognize signs and sx of too much or dysfunctional exercise, activity, or posture. 9. Patient will increase FOTO score from 48 to at least 65 to show MDC/MCII and expected functional outcome in 6 weeks Patient Education: Diagnosis and recovery specific education with patient verbalized understanding. Post-Treatment Pain Scale: 0 Assessment: Patient had an expected response to treatment. Good reduction in sx with today's program as previous session. Skilled Intervention demonstrated by modifications of treatment per exercise log including assessment of patient's response and safety interventions per exercise log. Progress towards goals as expected. Plan for Next Visit: Treatment Visit with focus on increasing functional activity tolerance Bharath Allen PT State License, [id number] documented in this encounter [facility] 11-03-2020 History of Present illness Narrative [facility] OUTPATIENT REHABILITATION Evaluation Today's Date 11/03/2020 Patient Name: Shree Orellana Date of : 1950 Case Name: great toe flexor tendon, quadraceps tendonitis Functional Diagnosis: 1. Tendinitis of left flexor hallucis longus 2. Tendinitis of left quadriceps tendon Clinical Information: Subjective All subjective data collected as part of a multidisciplinary team: No Referring Diagnosis: FHL tendonitis, quadraceps tendonitis Patient accompanied by: unaccompanied History of Present Illness Contemporary Medical History: Broken L ankle years ago Subjective History: ONSET: client notes no incident, gradual onset - noticed pain worst with prolonged standing in latter-day. Thinks she aggravated her pain by walking her dog 40+min regularly w/o her shoe inserts. Previously had plantar fasciitis. CC: Was having pain in foot, knee and hip and has started doing Flx Stringer Longus ex which has noticably reduced pain in all 3 areas of concern. Pain was in hip, knee and leija as well as foot. Hand dominance: right Overall rating of health: Good Pain Scale: Pain location: hip, knee and ankle/foot (typically worst pain now is in hip, though knee and foot also have some pain) Average Pain: 4/10 (lowest pain 2/10) Pain at highest: 6/10 Aggravating factors: walking, standing Easing factors: sitting, resting 24 Hour Symptom Behavior Pain Morning: best. Nighttime pain: worse (aleveiated by positioning - pillow under knee) Personal Goals: Walking dog, standing in latter-day Social Support: Buddhism, social, or cultural considerations to be made aware of before starting treatment: No Buddhism, social, or cultural considerations to be made aware of before starting treatment: No Hip Right Hip Right Hip WFL Left Hip Tenderness: lateral and greater trochanter Range of Motion: WFL Point tenderness over trochanteric bursa, also in gluteus minimus. Denies tenderness in SIjt, quadratus lumborum. Knee Left Knee Tenderness: Denies tenderness in peripatellar region or quad tendon. Tenderness in L vastus lateralis with moderate depth palpation. Marked tenderness and tight bands L peroneus longus mm Range of Motion: WFL Ankle/Foot Right Ankle/Foot Range of Motion: 1st ray extension Passive: 40 Tenderness at anterior medial aspect of calcaneus (plantar fascia insertion). Marked palpable tightness in great toe flexor tendon, w/ moderate tenderness. Treatments: Physical Therapy Exercise Log - 11/03/20 1151 OTHER Precautions/Contraindications [facility] Vitals 10:05-10:45 Additional Exercises Add more exercises? Yes Self Care (36517) Intervention instructed in great toe DF stretch in kneeling and with leg under chair. Instructed patient in safe use of ice packs and cyro agents with techniques to optimize treatment effects at home. Also in anti-inflammatory benefits of cryo therapy, and physics of energy transfer to support effective application technique. Parameters 10 PT Treatment Times Self Care Total Time 10 Direct Treatment Time 10 Total Treatment Time 40 Treatment Plan: Frequency of Visits: twice per week Duration: 5 weeks Interventions: Therapeutic Exercise, Neuromuscular Re-Education, Manual Therapy, Therapeutic/ Functional Activities, Self Care, Electrical Stimulation, Electrical Stimulation-Attended, Ultrasound, Vasopneumatic and Dry Needling Rehab Potential: good Goals: Physical Therapy Ortho Goals: 1. The patient will safely, correctly and independently demonstrate the ability to perform a progressive HEP to achieve maximal rehabilitation potential and prevent this condition from recurring. 2. Able to tolerate standing/walking 30+ min continuously; able to manipulate/move up to 20# occasionally in knee to waist range. 3. Demonstrates 4/5 knee strength 125deg of AROM. 4. Resumption of full PLOF ADL at home and in recreational activities. 5 Decrease pain from 6/10 with activity to 3/10 or less with full duty activity at home and recreation. 6. Patient to be independent with pain management methods including specific localized self application of thermal and/or cryo agents, stretching/self-mobilization, self-taping/supportive devices, localized tissue manipulation/pressure, self massage, and OTC topical analgesics; and awareness of products which may be available to assist in these strategies. 7. Patient to effectively apply relevant principles of regional body biomechanics and task related ergonomics. 8. Patient to verbalize adequate understanding of rehabilitation process; also ability to recognize signs and sx of too much or dysfunctional exercise, activity, or posture. 9. Patient will increase FOTO score from 48 to at least 65 to show MDC/MCII and expected functional outcome in 6 weeks Patient Education provided: See Self Care Clinical Impression: Client presents with tightness and tenderness in plantar surface of foot (PFinsertion and FHL tendon) also greater trochanteric bursitis with secondary reactivity of gluteus minimus, vastus lateralis and peroneus longus mm. Bharath Allen PT State License, [id number] documented in this encounter [facility] Diagnosis Tendinitis of left flexor hallucis longus Tendinitis of left quadriceps tendon [facility] Diagnosis Quadriceps tendinitis Tendinitis of left flexor hallucis longus [facility] Diagnosis Quadriceps tendinitis Tendinitis of left flexor hallucis longus [facility] Diagnosis Quadriceps tendinitis Tendinitis of left flexor hallucis longus [facility]* Diagnosis Quadriceps tendinitis Tendinitis of left flexor hallucis longus [facility]* Diagnosis Quadriceps tendinitis Tendinitis of left flexor hallucis longus [facility]* Diagnosis Follow [facility]- [facility] Diagnosis Diarrhea, unspecified type- Primary Irritable bowel syndrome with diarrhea Irritable bowel syndrome [facility] Diagnosis Change in bowel habits- Primary Other symptoms involving digestive system Diarrhea, unspecified type Change in bowel habits Other symptoms involving digestive system Change in bowel habits Other symptoms involving digestive system Diarrhea, unspecified type [facility] Diagnosis Visit for screening mammogram Other screening mammogram [facility] Consultation (Routine) - Pending Review Specialty Diagnoses / Procedures Referred By Quintin mi Referred To Contact General Surgery Diagnoses Diarrhea, unspecified type Irritable bowel syndrome with diarrhea Deena Coleman MD [address] [place] [address] Cecilia Wilde MD [address] [address] Referral ID Status Reason Start Date Expiration Date Visits Requested Visits Authorized [id number] Pending Review Specialty Services Required/Pat adrianant's Best Interest 08/09/2021 08/09/2022 1 1 [facility] Assessments Diagnosis Special screening for malign ant neoplasms, colon - Primary Personal history of breast c ancer Personal history of malignant neoplasm of breast Diagnosis Change in bowel habits- Primary Other symptoms involving digestive system Diagnosis Carotid bruit, unspecified laterality Summary Purpose Family History No Family History Records FoundNo Family History Records FoundNo Family History Records FoundNo Family History Records FoundNo Family History Records FoundNo Family History Records Found Advance Directives No Advanced Directives Records FoundDocuments on File Type Date 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 Advance Directives and Living Will Documents on File Type Date 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 Advance Directives and Livin g Will 01/07/2020 2:42 PM Documents on File Type Date 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 Advance Directives and Livin g Will 01/07/2020 2:42 PM Documents on File Type Date 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 Advance Directives and Livin g Will 06/08/2021 1:59 PM Documents on File Type Date 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 Advance Directives and Livin g Will 06/08/2021 1:59 PM History of Present Illness * Cecilia Wilde MD - 11/26/2018 3:09 PM EDT For about 3 or 4 weeks, this 68-year-old female has had problems with increased constipation, incomplete evacuation of feces, and increased gassiness. She read on the Internet that these could be symptoms of colon cancer and with her extensive family history, she thought she better discuss it further with me. Upon further discussion, she admits that she is not taking the hour long walk with her dog in the morning that she used to because her now is. She also used to drink a large quantity of waterbefore going to work and since it is the summer, she is not doing that either. Since she just had a colonoscopy less than a year ago, reassured her that it is extremely unlikely this is related to neoplasm. I recommend that she try to return to her regular daily activities as described above, and see if she does not get better. We certainly can consider colonoscopy if her symptoms progress. She seemed quite relieved and was agreeable to the plan. documented in this encounter Reason for Referral Status Reason Specialty Diagnoses / Procedures Referre d By Contact Referred To Contact Closed Cardiology Diagnoses Carotid bruit, unspecified laterality Procedures Carotid Duplex Deena Coleman MD [address] [place] [address] Status Reason Specialty Diagnoses / Procedures Referred By Contact Referred To Contact Pending Review Rehabilitation Diagnoses Tendinitis of left flexor hallucis longus Tendinitis of left quadriceps tendon Garo Cheek MD [address] [place] [address] [facility] [address] [phone] Additional Source Comments INFORMATION SOURCE (unrecogn ized section and content) DATE CREATED AUTHOR AUTHOR'S ORGANIZ ATION 08/20/2021 [facility] DATE CREATED AUTHOR AUTHOR'S ORGANIZ ATION 09/10/2021 [facility] DATE CREATED AUTHOR AUTHOR'S ORGANIZ ATION 05/14/2022 [facility] DATE CREATED AUTHOR AUTHOR'S ORGANIZ ATION 06/03/2022 [facility] DATE CREATED AUTHOR AUTHOR'S ORGANIZ ATION 11/02/2022 [facility] Reason for Visit (unrecogniz ed section and content) Status Reason Specialty Diagnoses / Procedures Referre d By Contact Referred To Contact Closed Cardiology Diagnoses Carotid bruit, unspecified laterality Procedures Carotid Duplex Deena Coleman MD [address] [place] [address] Status Reason Specialty Diagnoses / Procedures Referred By Contact Referred To Contact Authorized Rehabilitation Diagnoses Tendinitis of left flexor hallucis longus Tendinitis of left quadriceps tendon Garo Cheek MD [address] [place] [id number] [facility] [address] [place] [phone] Reason Comments Physical Therapy Status Reason Specialty Diagnoses / Procedures Referred By Contact Referred To Contact Authorized Rehabilitation Diagnoses Tendinitis of left flexor hallucis longus Tendinitis of left quadriceps tendon Garo Cheek MD [address] [place] [address] [facility] [address] [place] [phone] Reason Comments Follow-up Reason Comments Consult Diarrhea,IBS Specialty Diagnoses / Procedures Referred By Quintin mi Referred To Contact General Surgery Diagnoses Diarrhea, unspecified type Irritable bowel syndrome with diarrhea Deena Coleman MD [address] [place] [address] Cecilia Wilde MD [address] [address] Referral ID Status Reason Start Date Expiration Date Visits Requested Visits Authorized [id number] Pending Review Specialty Services Required/Pat mariah's Best Interest 08/09/2021 08/09/2022 1 1 Specialty Diagnoses / Procedures Referred By Quintin mi Referred To Contact Diagnoses Visit for screening mammogram Procedures MAMMO SCREENING WITH ALEX BILATERAL MAMMO SCREENING BILATERAL Mammography-Anna, Self-Requested [address] [place] [address] Referral ID Status Reason Start Date Expiration Date V isits Requested Visits Authorized [id number] New Request 06/15/2022 07/10/2023 1 1 Care Teams (unrecognized sec tion and content) Credit Operations Specialist Relationship Specialty Start Date End Date Deena Coleman MD [address] [place] [address] PCP - General Internal Medicine 11/30/15 Deena Coleman MD [address] [place] [address] Referring Physician Internal Medicine 10/13/16 Credit Operations Specialist Relationship Specialty Start Date End Date Deena Coleman MD [address] [place] [address] PCP - General Internal Medicine 11/30/15 Deena Coleman MD [address] [place] [address] Referring Physician Internal Medicine 10/13/16 Credit Operations Specialist Relationship Specialty Start Date End Date Deena Coleman MD [address] [place] [address] PCP - General 04/03/07 Bear Vegas, [employer]ARCH[employer]ANGE FEEDER-[employer]ORATORY ANALYST [address], [address] [place] [address] Certified Nurse Practitioner 02/09/16 Todd Sanders MD [address], [address] [place] [address] Oncologist Medical Oncology 06/22/22 Credit Operations Specialist Relationship Specialty Start Date End Date Deena Coleman MD [address] [place] [address] PCP - General 04/03/07 Bear Vegas, STARCHER AND [employer] FE[employer]IME LABORATORY ANALYST [address], [address] [place] [address] Certified Nurse Practitioner 02/09/16 Georgina Guzman, MABEL Registered Nurse Medical Oncology 02/09/16 06/21/22 Brunilda Gupta, RN Registered Nurse Medical Oncology 02/09/16 06/21/22 Inez Vale, RN Registered Nurse Medical Oncology 02/09/16 06/21/22 Todd Sanders MD [address], [address] [place] [address] Oncologist Medical Oncology 02/09/16 06/21/22 FOR RECORDS PERTAINING TO PATIENTS WHO ARE OR HAVE BEEN ENROLLED IN A CHEMICAL DEPENDENCY/SUBSTANCEABUSE PROGRAM, SOME INFORMATION MAY BE OMITTED. This clinical summary was aggregated from multiple sources. Caution should be exercised in using it in the provision of clinical care. This summary normalizes information from multiple sources, and as a consequence, information in this document may materially change the coding, format and clinical context of patient data. In addition, data may be omitted in some cases. CLINICAL DECISIONS SHOULD BE BASED ON THE PRIMARY CLINICAL RECORDS. [facility] [employer] provides no warranty or guarantee of the accuracy or completeness of information in this document.
--- NOTE | 2023-05-20 08:26 | MRI_ITS ---
STUDY: MRI BRAIN WITHOUT CONTRAST REASON FOR EXAM: Female, 72 years old. Dementia INCREASING MEMORY LOSS-SHORT TERM, FAMILY HX ALZHEIMER''S, DENIES ANY OTHER CONCERNS TECHNIQUE: Standardized multiplanar fat and water weighted pulse sequences were obtained. COMPARISON: None. FINDINGS: There is mild cerebral atrophy with widening of the extra-axial spaces and ventricular dilatation. There are a limited number of small white matter hyperintensities, distributed throughout the deep white matter tracts of the cerebral hemispheres, consistent with mild chronic white matter ischemic changes. There is no evidence for recent intracranial ischemia or other cause of cytotoxic edema on diffusion weighted imaging (DWI). Normal T2* images of the brain without demonstrated susceptibility artifact. There is no demonstrated hemosiderin stain. Bilateral lateral ventricular choroid plexus cyst noted which is of no clinical significance. Normal bilateral basal ganglia. Normal thalami. There is no extra-axial fluid accumulation. Normal flow voids within the major intracranial circulation suggesting patency by spin echo criteria. Normal sella turcica, pituitary gland, infundibular stalk, optic chiasm and hypothalamus. Normal tectal plate and pineal gland. Normal midbrain, aydee and medulla. Normal cerebellum. Normal basal cisterns. Normal bilateral temporal bones. Normal bilateral internal auditory canals. No demonstrated orbital abnormality, within the constraints of a routine brain study. Normal visualized paranasal sinuses. Normal calvarium and skull base. Normal visualized soft tissue structures. Normal visualized upper cervical spine. MRI/Brain without Contrast IMPRESSION: 1. Involutional changes of the brain, as described above. 2. No acute infarct or intracranial hemorrhage Electronically Signed: Elieser Knapp MD at 16:02 EST ,
[2023-05-20 08:38] LABS: Hematocrit 42.7 % (37-47); Hemoglobin 13.7 g/dL (12.0-15.0); Mean Corp Hgb Conc 32.1 g/dL (32-36); Mean Corpuscular Hgb 28.8 pg (27.0-32.0); Mean Corpuscular Volume 89.9 fL (81-99); Mean Platelet Vol. 13.2 fl (6.2-12.0); Platelet Count 259 K/mm3 (150-450); RBC Distribution Width CV 12.8 % (11.6-14.6); RBC Distribution Width SD 42.4 fl (35.1-43.9); Red Blood Count 4.75 M/mm3 (4.2-5.4); White Blood Count 9.9 K/mm3 (4.4-11.0)
[2023-05-20 09:13] LABS: Vitamin B12 314 pg/mL (211-911)
[2023-05-20 09:23] LABS: AST(SGOT) 16 U/L (15-37); Alanine Aminotransfer ALT/SGPT 25 U/L (13-56); Albumin, Serum 3.6 g/dL (3.2-5.0); Alkaline Phosphatase 84 U/L (45-117); Anion Gap 3 (5-15); BUN 20 mg/dL (7-18); BUN/Creat Ratio 25.8 RATIO (10-20); Calcium,Total 9.7 mg/dL (8.5-10.1); Chloride 107 mmol/L (98-107); Cholesterol 264 mg/dL (200); Creatinine, Serum 0.78 mg/dL (0.55-1.02); EST Glomerular Filtration Rate 78 mL/min (>60); Est Glom Filt Rate - Afr Amer 94 mL/min (>60); Globulin 3.7 g/dL (2.2-4.2); Glucose 72 mg/dL (74-106); High Density Lipoprotein 66 mg/dL; Potassium 4.1 mmol/L (3.5-5.1); Protein, Total 7.3 g/dL (6.4-8.2); Sodium Level 140 mmol/L (136-145); Thyroid Stim Hormone (TSH) 2.19 uIU/mL (0.358-3.74); Triglycerides 156 mg/dL; Very Low Density Lipoprotein 31 mg/dL (5-40)
[2023-05-25 12:09] LABS: Vitamin B1, Thiamine 144.4 nmol/L (66.5-200.0)
== END | disposition home or self-care (01) ==
PROVIDERS: Referring Provider Psychiatry & Neurology Neurology; Visit Provider Psychiatry & Neurology Neurology
DX: F03.90 Unspecified dementia, unspecified severity, without behavioral disturbance, psychotic disturbance, mood disturbance, and anxiety (principal); E78.5 Hyperlipidemia, unspecified
CPT/HCPCS: 36415; 70551; 80053; 80061; 82607; 82746; 84425; 84443; 85027